=== PATIENT | male | born 1965 | race Caucasian/White ===

== ENCOUNTER 2025-07-30 12:09 | Outpatient (OUT) | payer MEDICARE, MEDICAID, SELFPAY ==
--- OUTSIDE RECORDS SUMMARY | 2025-07-29 06:45 | XMS_ITS ---
Author Organization [facility] vices Address [address] [place], [place] [id number] Care Team Providers Care Kier Drier Name Role Phone Augustin Keys [phone] Allergies No Known Allergies REASON FOR VISIT left arm numbness Medications Medication SIG (Take, Route, Frequency, Duration) Notes Start Date End Date Status Aspirin Adult Low Dose 81 MG 1 tablet Orally Once a day; Duration: 90 days Active Metoprolol Succinate 25 MG 1 capsule Orally Once a day; Duration: 90 days Active Rosuvastatin Calcium 10 MG 1 tablet Orally Once a day; Duration: 90 days Active metFORMIN HCl ER 500 MG 1 tablet with evening meal Orally Once a day; Duration: 90 days 07/06/2023 Not-Taking Nitroglycerin 0.4 MG as directed Sublingual 3 times a day 1 tablet as needed every 5min up to 3 times. max 3 tablets daily. 06/08/2023 Not-Taking Acetaminophen 500 MG 1 tablet as needed Orally every 6 hrs Not-Taking Losartan Potassium 100 MG 1 tablet Orally Once a day; Duration: 90 days Active Social History Tobacco Use: Social History Observation Description Date Details (start date - stop date) Current Smoker NA - NA Sex Assigned At : Social History Observation Description Sex Assigned At Male CAGE-AID Questionnaire (2018 Edition) Question Answer Notes Have you ever felt that you ought to cut down on your drinking or drug use? No Have people annoyed you by criticizing your drin lawanda or drug use? No Have you ever felt bad or guilty about your drin lawanda or drug use? No Have you ever had a drink or used drugs first thing in the morning to steady your nerves or to get rid of a hangover? No CAGE-AID Score 0 Interpretation Negative PRAPARE Question Answer Notes Date Completed/Updated: 07/29/2025 What is your current housing situation? I have h ousing Are you worried about losing your housing? No What is the highest level of school that you have finished? Less than a high school degree What is your current work situation? Oth erwise unemployed but not seeking work (ex. 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 Check all that apply I do not have problems meeting my needs Has lack of transportation k ept you from medical appointments, meetings, work or from getting things needed for daily living? No How often do you see or talk to people that you care about and feel close to? (For example: talking to friends on the phone, visiting friends or family, going to caodaism or club meetings) More than 5 times a week How stressed are you? Stress is when someone feels tense, nervous, anxious, or can't sleep at night because their mind is troubled Not at all In the past year have you sp ent more than 2 nights in a row in a shelter, shelter, residential center, or juvenile correctional facility? No Are you a refugee? No What country are you from? [place] Do you feel physically and e motionally safe where you currently live? Yes In the past year, have you b een afraid of your partner or ex-partner? Yes PRAPARE Score: 7 Tobacco Control (Standard) Question Answer Notes Tobacco use: Current smoker How often do you smoke cigarettes? Every day How many cigarettes a day do you smoke? 31 or mo re How soon after you wake up do you smoke your fir st cigarette? 6-30 minutes Vital Signs Temperature 98.6 degrees Fahrenheit 07/29/20 25 Weight 178.2 lbs 07/29/2025 Height 69.00 in 07/29/2025 BMI 26.31 kg/m2 07/29/2025 Blood pressure systolic 155 mm Hg 07/29/20 25 Blood pressure diastolic 76 mm Hg 025 Heart Rate 56 /min 07/29/2025 Respiratory Rate 16 /min 07/29/2025 Oximetry 96 % 07/29/2025 Weight-kg 80.83 kg 07/29/2025 Height-cm 175.26 cm 07/29/2025 denies pain. Karma Downs 07/29/2025 10:32:50 AM EDT > Encounters Encounter Location Date Provider Diagnosis Main [address] [place], [place] [id number] 07/29/2025 Augustin Ludmila Cigarette nicotine dependence without complication F17.210 ; Atherosclerosis of coronary artery of [place] heart, unspecified vessel or lesion type, unspecified whether angina present I25.10 ; Primary hypertension I10 ; Hyperlipidemia, unspecified hyperlipidemia type E78.5 ; Screening for cardiovascular condition Z13.6 ; Screening for diabetes mellitus Z13.1 ; Prediabetes R73.03 ; Screening for prostate cancer Z12.5 ; Dietary counseling Z71.3 and Exercise counseling Z71.82 Assessments Encounter Date Diagnosis (ICD Code) Assessment Notes Treatment Notes Treatment Clinical Notes Section Notes 07/29/2025 Cigarette nicotine dependence without complication (ICD-10 - F17.210) Patient provided with [phone] phone line. Low dose Ct ordered due to extensive history 07/29/2025 Atherosclerosis of coronary artery of [place] heart, unspecified vessel or lesion type, unspecified whether angina present (ICD-10 - I25.10) storngly encouraged pt to be seen in the ER with any worsening of the numbness and tingling, shorntess of breath or any new chest pain today i will order labs as listed as well as an EKG given the hisotry i strongly encouraged pt to call and schedule with cardio if he can not be seen by them then to call and i will send a new referral for a different cardio pt verbalized understanding i will follow in one week ask he complete his EKG SANDEEP as well as his other lab work explained that left arm pain can be signs of a heart attack, stroke and other serious conditions and this work up being urgent is very important 07/29/2025 Primary hypertension (ICD-10 - I10) BP is elevated in office today i wlll see him in one week for a recheck of this pt will go to the Er with any new or worsening symptoms of but not limited to chest pain, shortness of breath, blurry vision, or headaches if elevated will add additional agent to help control the BP labs as ordered recomend cardio follow up 07/29/2025 Hyperlipidemia, unspecified hyperlipidemia type (ICD-10 - E78.5) refill as listed lab ordered for recheck 07/29/2025 Screening for cardiovascular condition (ICD-10 - Z13.6) 07/29/2025 Screening for diabetes mellitus (ICD-10 - Z13.1) 07/29/2025 Prediabetes (ICD-10 - R73.03) last A1c was pre DM pt was on metformin currently on nothing will recheck his a1c at this time 07/29/2025 Screening for prostate cancer (ICD-10 - Z12.5) 07/29/2025 Dietary counseling (ICD-10 - Z71.3) 07/29/2025 Exercise counseling (ICD-10 - Z71.82) Plan Of Treatment Medication Medication Name Sig Start Date Stop Date Notes Aspirin Adult Low Dose 81 MG 1 tablet Or ally Once a day; Duration: 90 days Metoprolol Succinate 25 MG 1 capsule Ora lly Once a day; Duration: 90 days Rosuvastatin Calcium 10 MG 1 tablet Oral ly Once a day; Duration: 90 days Losartan Potassium 100 MG 1 tablet Orall y Once a day; Duration: 90 days Treatment Notes Assessment Notes Cigarette nicotine dependenc e without complication Patient provided with [phone] phone line. Low dose Ct ordered due to extensive history Atherosclerosis of coronary artery of [place] heart, unspecified vessel or lesion type, unspecified whether angina present storngly encouraged pt to be seen in the ER with any worsening of the numbness and tingling, shorntess of breath or any new chest pain today i will order labs as listed as well as an EKG given the hisotry i strongly encouraged pt to call and schedule with cardio if he can not be seen by them then to call and i will send a new referral for a different cardio pt verbalized understanding i will follow in one week ask he complete his EKG SANDEEP as well as his other lab work explained that left arm pain can be signs of a heart attack, stroke and other serious conditions and this work up being urgent is very important Primary hypertension BP is elevated in office today i wlll see him in one week for a recheck of this pt will go to the Er with any new or worsening symptoms of but not limited to chest pain, shortness of breath, blurry vision, or headaches if elevated will add additional agent to help control the BP labs as ordered recomend cardio follow up Hyperlipidemia, unspecified hyperlipidemia type refill as listed lab ordered for recheck Prediabetes last A1c was pre DM pt was on metformin currently on nothing will recheck his a1c at this time Pending Test Test Name Order Date Electrocardiogram (EKG) 07/29/2025 LIPID PANEL WITH REFLEX TO DIRECT LDL PSA, TOTAL, 3RD GENERATION 07/29/2025 HEMOGLOBIN A1C 07/29/2025 CT LOW DOSE LUNG SCREENING 07/29/2025 COMPREHENSIVE METABOLIC PANEL (AMA) 07/17 Next Appt Details Follow Up: 1 Week, Reason: h tn arm numbness Provider Name:Augustin Keys, 08/05/2025 10:30:00 AM, [address] [place] [address] [place], [place], [id number], Progress Notes * Emery JACKSONDOB:1965 (60 yo M)Acc No.[id number]:07/29/2025 Medical Note Patient: Jolene KAEEmery JONES Provider: Lori Keys :1965 A ge:60 Y S ex:Male Date:07/29/2025 Address:[address] [place] [address], [id number] Check In:10:18 AM EST Subjective: * Chief Complaints: * L eft arm numbness * HPI: I nterim History: Pt presents as a new patient for some arm numbness and medication refills he states that this arm numbness started a few weeks ago after a period of chest pain about four weeks ago has not had chest pain since he has a history of CAD and has previously followed with a slate mixer however reports he was told get out when he has last seen them over an unpaid bill pt does have medicare and medicaid today he is mostly concerned about getting a refill of his medications as he is nearly out of his Metoprolol, rosuvastatin, aspirin and losartan he denies any chest pain, dyspnea on exertion, headaches, vision changes, fatigue, abdominal pain, syncope or near syncope, palpations, only reporting a numbness in his left arm that has not caused any decrease in ROM, strength or pain reports that he has been able to do everything as he normally does since the numbness and tingling started and has no limitations what's so ever. D epression screening: PHQ-9 L ittle interest or pleasure in doing things?Not at all F eeling down, depressed, or hopeless N ot at all T rouble falling or staying asleep, or sleeping too much N ot at all F eeling tired or having little energy N ot at all P oor appetite or overeating N ot at all F eeling bad about yourself or that you are a failure, or have let yourself or your family down N ot at all T rouble concentrating on things, such as reading the newspaper or watching television N ot at all M oving or speaking so slowly that other people could have noticed; or the opposite, being so fidgety or restless that you have been moving around a lot more than usual N ot at all T houghts that you would be better off or of hurting yourself in some way N ot at all T otal Score 0 * ROS: N egative except mentioned above in the HPI. * Medical History: * Surgical History: H and Surgery Left, * Hospitalization/Major Diagno stic Procedure: D enies Past Hospitalization * Family History: F ather: . M other: alive. P aternal Grand Father: . P aternal Grand Mother: . M aternal Grand Father: . M aternal Grand Mother: . Brother: alive, diagnosed with Hypertension, Diabetes, High Cholesterol. S ister: alive, diagnosed with Cancer. 4 brother(s) , 3 sister(s) . . * Social History: P [facility] and [facility] Demographics: P [facility] Questions D o you have any barriers to learning? N one W hat is your preferred method of learning??Reading H ow often do you need to have someone help you read instructions? N ever T obacco Use: T obacco Control (Standard) T obacco use: C urrent smoker H ow often do you smoke cigarettes? E very day H ow many cigarettes a day do you smoke? 3 1 or more H ow soon after you wake up do you smoke your first cigarette? 6 -30 minutes S exual History: F amily Planning A re you or your partner planning on becoming in the next year if not already ? N o W hat type of contraception are you using??None D rugs/Alcohol/Caffeine: C AGE-AID Questionnaire (2018 Edition) H ave you ever felt that you ought to cut down on your drinking or drug use? N o H ave people annoyed you by criticizing your drinking or drug use? N o H ave you ever felt bad or guilty about your drinking or drug use? N o H ave you ever had a drink or used drugs first thing in the morning to steady your nerves or to get rid of a hangover? N o C AGE-AID Score 0 I nterpretation N egative S ocial Determinants: P RIMMA Fernández ate Completed/Updated: 1 W hat is your current housing situation? I have housing A re you worried about losing your housing??No W hat is the highest level of school that you have finished? L ess than a high school degree W hat is your current work situation? O therwise unemployed but not seeking work (ex. 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 Check all that apply I do not have problems meeting my needs H as lack of transportation kept you from medical appointments, meetings, work or from getting things needed for daily living? N o H ow often do you see or talk to people that you care about and feel close to? (For example: talking to friends on the phone, visiting friends or family, going to caodaism or club meetings) M ore than 5 times a week H ow stressed are you? Stress is when someone feels tense, nervous, anxious, or can't sleep at night because their mind is troubled N ot at all I n the past year have you spent more than 2 nights in a row in a shelter, shelter, residential center, or juvenile correctional facility? N o A re you a refugee? N o W hat country are you from[place] D o you feel physically and emotionally safe where you currently live? Y es I n the past year, have you been afraid of your partner or ex-partner? Y es P RIMMA Score: 7 * Medications: T akingAspirin Adult Low Dose 81 MG Tablet Delayed Release 1 tablet Orally Once a day Rosuvastatin Calcium 10 MG Tablet 1 tablet Orally Once a day Metoprolol Succinate 25 MG Capsule ER 24 Hour Sprinkle 1 capsule Orally Once a day Losartan Potassium 100 MG Tablet 1 tablet Orally Once a day Taking Aspirin Adult Low Dose 81 MG Tablet Delayed Release 1 tablet Orally Once a day Taking Rosuvastatin Calcium 10 MG Tablet 1 tablet Orally Once a day Taking Metoprolol Succinate 25 MG Capsule ER 24 Hour Sprinkle 1 capsule Orally Once a day Taking Losartan Potassium 100 MG Tablet 1 tablet Orally Once a day Not-Taking/PRNmetFORMIN HCl ER 500 MG Tablet Extended Release 24 Hour 1 tablet with evening meal Orally Once a day Nitroglycerin 0.4 MG Tablet Sublingual as directed Sublingual 3 times a day , Notes to Pharmacist: 1 tablet as needed every 5min up to 3 times. max 3 tablets daily.Acetaminophen 500 MG Tablet 1 tablet as needed Orally every 6 hrs Medication List reviewed and reconciled with the patientNot-Taking/PRN metFORMIN HCl ER 500 MG Tablet Extended Release 24 Hour 1 tablet with evening meal Orally Once a day Not-Taking/PRN Nitroglycerin 0.4 MG Tablet Sublingual as directed Sublingual 3 times a day , Notes to Pharmacist: 1 tablet as needed every 5min up to 3 times. max 3 tablets daily.Not-Taking/PRN Acetaminophen 500 MG Tablet 1 tablet as needed Orally every 6 hrs Medication List reviewed and reconciled with the patient * Allergies: N .K.D.A.no[Allergies Verified] Objective: * Vitals: T emp:98.6F, Wt:178.2lbs, Ht: 69.00 in, BMI:26.31Index, BP: 154/92 mm Hg,155/76mm Hg, HR:56/min, RR:16/min, Pain scale:01-10, Oxygen sat %:96%, Wt-k.83 kg, Ht- cm: 175.26 cm, Body Surface Area: 1.98. denies pain.Karma Downs 07/29/2025 10:32:50 AM EDT > . * Examination: C QM Exceptions: Currently taking Aspirin: A spirin Use: Y es G eneral Examination: General appearance: a lert, pleasant, well-nourished and in no acute distress. Head: n ormocephalic, atraumatic. Heart: r egular rate and rhythm without murmurs, gallops, clicks or rubs. Lungs: w ith scattered wheezes throughout. Abdomen: s oft with good bowel sounds, nontender, and no masses or hepatosplenomegaly. Extremities: n ormal extremity with no clubbing, cyanosis or edema. Neurologic: n onfocal, alert and oriented, gait normal, normal upper and lower extremity motor strength and function. Psych: a lert and oriented x 3. Assessment: * Assessment: 1. A therosclerosis of coronary artery of [place] heart, unspecified vessel or lesion type, unspecified whether angina present - I25.10 (Primary) 2 . C igarette nicotine dependence without complication - F17.210 3 . P rimary hypertension - I10 4. H yperlipidemia, unspecified hyperlipidemia type - E78.5 5 . S creening for cardiovascular condition - Z13.6 6 . S creening for diabetes mellitus - Z13.1 7 . P rediabetes - R73.03 8 . S creening for prostate cancer - Z12.5 9 . D ietary counseling - Z71.3 1 0. E xercise counseling - Z71.82 Plan: * Treatment: Notes: storngly encouraged pt to be seen in the ER with any worsening of the numbness and tingling,shorntess of breath or any new chest pain today i will order labs as listed as well as an EKG given the hisotry i strongly encouraged pt to call and schedule with cardio if he can not be seen by them then to call and i will send a new referral for a different cardio pt verbalized understanding i will follow in one week ask he complete his EKG SANDEEP as well as his other lab work explained that left arm pain can be signs of a heart attack, stroke and other serious conditions and this work up being urgent is very important ??2.?Cigarette nicotine dependence without complication?Imaging: CT LOW DOSE LUNG SCREENING* Notes: Patient provided with [phone] phone line. Low dose Ct ordered due to extensive history??3.?Primary hypertension? Refill Losartan Potassium Tablet, 100 MG, 1 tablet, Orally, Once a day, 90 days, 90, Refills 0; Refill Metoprolol Succinate Capsule ER 24 Hour Sprinkle, 25 MG, 1 capsule, Orally, Once a day, 90 days, 90, Refills 0.?LAB: COMPREHENSIVE METABOLIC PANEL (AMA) Notes: BP is elevated in office today i karenll see him in one week for a recheck of this pt will go to the Er with any new or worsening symptoms of but not limited to chest pain, shortnessof breath, blurry vision, or headaches if elevated will add additional agent to help control the BP labs as ordered recomend cardio follow up??4.?Hyperlipidemia, unspecified hyperlipidemia type? Refill Rosuvastatin Calcium Tablet, 10 MG, 1 tablet, Orally, Once a day, 90 days, 90, Refills 0. ?LAB: LIPID PANEL WITH REFLEX TO DIRECT LDL Notes: refill as listed lab ordered for recheck ??5.?Screening for diabetes mellitus?LAB: HEMOGLOBIN A1C6.?Prediabetes? Notes: last A1c was pre DM pt was on metformin currently on nothing will recheck his a1c at this time ??7.?Screening for prostate cancer?LAB: PSA, TOTAL, 3RD GENERATION * Procedure Codes: 3 077F HTN SYST BP >= 0589064D HTN DIAST BP < 770250I PT TOBACCO SCREEN RCVD TLK * Preventive Medicine: Counseling: C are goal follow-up plan: Nutrition/Dietary Counseling provided?Yes BMI management provided Y es S moking: Patient counselled on the dangers of tobacco use and urged to quit. 1 Patient Counselled: p atient not ready to quit * Follow Up: 1 Week (Reason: htn arm numbness) * Billing Information: * Visit Code: 83833 Office Visit Est 30-39 minutes. * Procedure Codes: 3077F HTN SYST BP >= 140. 3078F HTN DIAST BP < 80. 4004F PT TOBACCO SCREEN RCVD TLK. * Sign off status: Completed true * Provider: Lori Keys Date: Generated for Frank grant/Ciera/Monika on: 12:26 PM EDT History and Physical Notes * HPI (History of Present Illness) Category Sub-Category Detail Notes Category Not es Depression screening PHQ-9 Little inte rest or pleasure in doing things: Not at all Feeling down, depressed, or hopeless: No t at all Trouble falling or staying asleep, or sl eeping too much: Not at all Feeling tired or having little energy: N ot at all Poor appetite or overeating: Not at all Feeling bad about yourself o r that you are a failure, or have let yourself or your family down: Not at all Trouble concentrating on thi ngs, such as reading the newspaper or watching television: Not at all Moving or speaking so slowly that other people could have noticed; or the opposite, being so fidgety or restless that you have been moving around a lot more than usual: Not at all Thoughts that you would be b gladys off or of hurting yourself in some way: Not at all Total Score: 0 Interim History Pt presents as a new patient for some arm numbness and medication refills he states that this arm numbness started a few weeks ago after a period of chest pain about four weeks ago has not had chest pain since he has a history of CAD and has previously followed with a slate mixer however reports he was told get out when he has last seen them over an unpaid bill pt does have medicare and medicaid today he is mostly concerned about getting a refill of his medications as he is nearly out of his Metoprolol, rosuvastatin, aspirin and losartan he denies any chest pain, dyspnea on exertion, headaches, vision changes, fatigue, abdominal pain, syncope or near syncope, palpations, only reporting a numbness in his left arm that has not caused any decrease in ROM, strength or pain reports that he has been able to do everything as he normally does since the numbness and tingling started and has no limitations what's so ever Examination Category Sub-Category Detail Notes Category Not es General Examination General appearance: alert, p leasant, well-nourished and in no acute distress Head: normocephalic, atrau matic Heart: regular rate and rhy thm without murmurs, gallops, clicks or rubs Lungs: with scattered wheez es throughout Abdomen: soft with good bowel sounds, nontender, and no masses or hepatosplenomegaly Neurologic: nonfocal, alert and oriented, gait normal, normal upper and lower extremity motor strength and function Extremities: normal extremity wit h no clubbing, cyanosis or edema Psych: alert and oriented x 3 CQM Exceptions Currently taking Aspirin: Aspirin Use:: Yes
--- OUTSIDE RECORDS SUMMARY | 2025-07-30 12:27 | XMS_ITS | Encounter Summary ---
Author Organization [facility] Address [facility] [id number] [address] [place] [address] Care Team Providers Care Sales And Marketing Analyst Name Role Phone Dora Art COMMUNITY AMBASSADOR-RN WOMEN SERVICES Primary Care Provider + Encounter Details Date Type Department Care Team (Late st Contact Info) Description 04/09/2021 Orders Only [facility] [address] [place] [id number] External, Scanning Provider Social History Tobacco Use Types Packs/Day Years Used Date Smoking Tobacco: Every Day Cigarettes Smokeless Tobacco: Never Alcohol Use Standard Drinks/Week Comments Yes 0 (1 standard drink = 0.6 oz pur e alcohol) Childcare Answer Date Recorded Childcare Unknown 03/28/2019 Employment Answer Date Recorded Employment Unknown 03/28/2019 Purpose - Life Answer Date Recorded Purpose and direction in life Unknown Sex and Gender Information Value Date Recorded Sex Assigned at Not on file Legal Sex Male 11:35 AM EDT Gender Identity Not on file Sexual Orientation Not on file COVID-19 Exposure Response Date Recorded In the last month, have you been in contact with someone who was confirmed or suspected to have Coronavirus / COVID-19? No / Unsure 04/09/2021 7:46 AM EDT documented as of this encounter Plan of Treatment Not on file documented as of this encounter Procedures Procedure Name Priority Date/Time Associated Diagnosis Comments MULTIPLE LABS Routine 07/24/2020 LIPID PROFILE Routine 07/24/2020 documented in this encounter Results * Lipid profile (07/24/2020) External Cholesterol 207 MANUALLY TRANSCRIBED RESULTS External Cholesterol:Hdl 3.3 MANUALLY TRANSCRIBED RESULTS External Hdl Cholesterol 62 MANUALLY TRANSCRIBED RESULTS External Ldl (Calc) 120 MANUALLY TRANSCRIBED RESULTS External Triglycerides 124 MANUALLY TRANSCRIBED RESULTS External Very Low Lipoprotein 25 MANUALLY TRANSCRIBED RESULTS us Scanning Provider External LAB BLOOD ORDERABLES Edited Result - Final MANUALLY TRANSCRIBED RESULTS * Multiple labs (07/24/2020) us Scanning Provider External [facility] Final Result Performing Organization Address City/[facility] [address]/[facility] Co de Phone Number MANUALLY TRANSCRIBED RESULTS documented in this encounter Visit Diagnoses Not on filedocumented in this encounter Care Teams Sales And Marketing Analyst Relationship Specialty Start Date End Date Dora Art, COMMUNITY AMBASSADOR-RN WOMEN SERVICES [address] [place] [address] PCP - General Family Medicine 03/24/21 documented as of this encounter
--- OUTSIDE RECORDS SUMMARY | 2025-07-30 12:27 | XMS_ITS | Patient Health Record ---
Author Organization [facility] vices Address [address] [place], [place] [id number] Care Team Providers Care Word Processing Supervisor Name Role Phone Augustin Keys Unavailable [phone] Allergies No Known Allergies Reason For Referral No Information Medications Medication SIG (Take, Route, Frequency, Duration) Notes Start Date End Date Status Metoprolol Succinate ER 25 MG 1 tablet Orally Once a day; Duration: 90 days Active Aspirin Adult Low Dose 81 MG 1 tablet Orally Once a day; Duration: 90 days Active Rosuvastatin Calcium 10 MG 1 tablet Orally Once a day; Duration: 90 days Active Acetaminophen 500 MG 1 tablet as needed [...] times. max 3 tablets daily. 06/08/2023 Not-Taking Social History Tobacco Use: Social History Observation Description Date Details (start date - stop date) Current Smoker NA - NA Sex Assigned At : Social History Observation Description Sex Assigned At Male Tobacco Use/Smoking Question Answer Notes Are you interested in quitting? Thinking about q uitting patient entered data How soon after you wake up d o you smoke your first cigarette? within 5 minutes patient entered data How often do you smoke cigarettes? every day patient entered data When did you start smoking? 10/17/1979 p atient entered data Tobacco use: current smoker patient enter ed data How many cigarettes a day do you smoke? 11-20 patient entered data CAGE-AID Questionnaire (2018 Edition) Question Answer Notes Have you ever felt that you ought to cut down on your drinking or drug use? No patient entered data Have people annoyed you by c riticizing your drinking or drug use? No patient entered data Have you ever felt bad or gu ilty about your drinking or drug use? No patient entered data Have you ever had a drink or used drugs first thing in the morning to steady your nerves or to get rid of a hangover? No patient entered data CAGE-AID Score 0 Interpretation Negative PRAPARE Question Answer Notes Date Completed/Updated: 07/29/2025 elidia nt entered data What is your current housing situation? I have housing patient entered data Are you worried about losing your housing? No patient entered data What is the highest level of school that you have finished? Less than a high school degree patient entered data What is your current work situation? Otherwise unemployed but not seeking work (ex. 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 Stress is when someone feels tense, nervous, anxious, or can't sleep at night because their mind is troubled Not at all patient entered data In the past year have you sp ent more than 2 nights in a row in a nursing home, intermediate, usp center, or juvenile correctional facility? No patient entered data Are you a refugee? No patient en tered data What country are you from? [place] ruma bowers entered data Do you feel physically and emotionally safe where you currently live? Yes patient entered data In the past year, have you b een afraid of your partner or ex-partner? Yes patient entered data PRAPARE Score: 7 Tobacco Control (Standard) Question Answer Notes Tobacco use: Current smoker How often do you smoke cigarettes? Every day How many cigarettes a day do you smoke? 31 or mo re How soon after you wake up do you smoke your fir st cigarette? 6-30 minutes Problems Problem Type SNOMED Code ICD Code Onset Dates Problem Status W/U Status Risk Notes Problem Prediabetes (373952981) Prediabetes (R73.03) Active confirmed Problem Tobacco user (562848656) Cigarette nicotine dependence without complication (F17.210) Active confirmed Problem Vertigo (625788002) Vertigo (R42) Problem resolved confirmed Comment:Refe rred to Dr. Marcano for removal of cerumen and evaluation of hearing loss; appt. next October 30. Can use Debrox 5 drops BID for the next 4 days; otherwise, discontinue use of Q Tips and keep ears clean and dry as able, Problem Hyperlipidaemia (25284393) Hyperlipidemia, unspecified hyperlipidemia type (E78.5) Active confirmed Problem Erectile dysfunction (639389607) Erectile dysfunction (N52.9) Inactive confirmed Comment:advi sed need to have labwork completed. could consider medication if all WNL., Problem Primary hypertension (53198731) Primary hypertension (I10) Active confirmed Problem Atherosclerotic heart disease of [place] coronary artery without angina pectoris (096652685196014) Atherosclerosis of coronary artery of [place] heart, unspecified vessel or lesion type, unspecified whether angina present (I25.10) Active confirmed Vital Signs Heart Rate 56 /min 07/29/2025 denies pain. Me Karma vaughan 07/29/2025 10:32:50 AM EDT > Temperature 98.6 degrees Fahrenheit 07/29/2025 dae es pain. Karma Downs 07/29/2025 10:32:50 AM EDT > Respiratory Rate 16 /min 07/29/2025 denies pain . Karma Downs 07/29/2025 10:32:50 AM EDT > Blood pressure diastolic 76 mm Hg 07/29/2025 den ies pain. Karma Downs 07/29/2025 10:32:50 AM EDT > Oximetry 96 % 07/29/2025 denies pain. Me Karma vaughan 07/29/2025 10:32:50 AM EDT > Height-cm 175.26 cm 07/29/2025 denies pain. Karma vaughan 07/29/2025 10:32:50 AM EDT > Weight-kg 80.83 kg 07/29/2025 denies pain. Karma vaughan 07/29/2025 10:32:50 AM EDT > Height 69.00 in 07/29/2025 denies pain. Karma vaughan 07/29/2025 10:32:50 AM EDT > Blood pressure systolic 155 mm Hg 07/29/2025 dae es pain. Karma Downs 07/29/2025 10:32:50 AM EDT > Weight 178.2 lbs 07/29/2025 denies pain. Karma vaughan 07/29/2025 10:32:50 AM EDT > BMI 26.31 kg/m2 07/29/2025 denies pain. Karma vaughan 07/29/2025 10:32:50 AM EDT > Encounters Encounter Location Date Provider Diagnosis Main [address] [place], [place] [id number] 07/29/2025 Augustin Keys Cigarette nicotine dependence without complication F17.210 ; Atherosclerosis of coronary artery of [place] heart, unspecified vessel or lesion type, unspecified [...] complication (ICD-10 - F17.210) Patient provided with [phone] phone line. Low dose Ct ordered due to extensive history 07/29/2025 Atherosclerosis of coronary artery of [place] heart, unspecified vessel or lesion type, unspecified [...] counseling (ICD-10 - Z71.82) Plan Of Treatment Pending Test Test Name Order Date Electrocardiogram (EKG) 07/29/2025 LIPID PANEL WITH REFLEX TO DIRECT LDL PSA, TOTAL, 3RD GENERATION 07/29/2025 HEMOGLOBIN A1C 07/29/2025 CT LOW DOSE LUNG SCREENING 07/29/2025 COMPREHENSIVE METABOLIC PANEL (AMA) 07/17 Next Appt Details Provider Name:Augustin Shipmanyue, 08/05/2025 10:30:00 AM, [address] [place], [place], [id number], Insurance Providers Payer Name Payer Address Payer Phone Subscriber Number Group Number Insured Name Patient Relationship to Insured Coverage Start Date Coverage End Date [facility] Dual Medical [facility] [address] [place] [address] [id number] Emery Child Self - patient is the insured 1 D20 Resp Sliding Fee Scale [address] [place] [address] Emery Child Self - patient is the insured 5 6 Medicaid [employer] [address] [place], [place] [id number] Emery Child Self - patient is the insured 0 Medicare NGS PPS [address] [place], [place] [id number] Emery Child Self - patient is the insured 5 1 Medical (General) History Medical History History ICD Code Hearing Loss Hypertension Vertigo Surgical History Surgery Date(Month/Year) Hand Surgery Left,
--- OUTSIDE RECORDS SUMMARY | 2025-07-30 12:27 | XMS_ITS | Clinical Summary ---
Author Organization [employer] [facility] Address [facility] [id number] [address] [place] [address] Care Team Providers Care Baker Helper Name Role Phone Dora Art SEAM RUBBING MACHINE OPERATOR-WET ROOM WORKER Primary Care Provider + Allergies No known active allergies Medications losartan (COZAAR) 100 mg tablet Take 100 mg by mouth daily. 0 Active meclizine (ANTIVERT) 25 mg tablet Take 25 mg by mouth 4 (four) times a day as needed. 0 Active ofloxacin (FLOXIN) 0.3 % otic solutionIndicat ions:Hearing loss of left ear due to cerumen impaction Instil 5 gtt in the affected ear(s) BID x 10 days 5 mL 0 Active Additional Information Patient not taking.Reported on 04/09/2021 Active Problems Problem Noted Date Diagnosed Date Hearing loss of left ear due to cerumen impactio n 10/30/2019 Family History Medical History Relation Name Comments Heart disease Father Relation Name Status Comments Father Social History Tobacco Use Types Packs/Day Years [...] on file Sexual Orientation Not on file Last Filed Vital Signs Vital Sign Reading Time Taken Comments Blood Pressure 112/68 03/24/2021 9:45 AM EDT Pulse 75 03/24/2021 9:45 AM EDT Temperature - - Respiratory Rate - - Oxygen Saturation - - Inhaled Oxygen Concentration - - Weight 80.7 kg (178 lb) 04/09/2021 8:03 AM EDT Height 182.9 cm (6') 04/09/2021 8:03 AM EDT Body Mass Index 24.14 04/09/2021 8:03 AM EDT Plan of Treatment Health Maintenance Due Date Last Done Comments Depression Screening 1976 Tobacco Screening 1976 Adult BMI Screening 01/18/1982 DTaP,Tdap and Td Vaccines (1 - Tdap) 01/18/1983 Zoster (Shingles) Vaccine (1 of 2) 01/18/2014 COVID-19 Vaccine (3 - 2024- season) 2025, 05/15/2021 Influenza Vaccine 06/17/2025 Medical Devices Not on file Insurance MEDICAID [place] [employer] MEDICARE Care Teams Baker Helper Relationship Specialty Start Date End Date Dora Art, [facility] [address] [place] [address] PCP - General Family Medicine 03/24/21
--- NOTE | 2025-07-30 12:35 | ECG_ITS ---
The [facility] Test Date: 2025-07-30 Pat Name: BOLIVAR JACKSON Department: Room: - Gender: Male Business Development Officer: : 1965 Requested By: [id number] Order Number: [id number] Reading MD: JAIR SALINAS M.D. Measurements Intervals Kn[place]bocker Rate: 58 P: 53 WI: 178 QRS: 94 QRSD: 105 T: 71 QT: 394 QTc: 389 Interpretive Statements SINUS BRADYCARDIA BORDERLINE RIGHT AXIS DEVIATION [QRS AXIS > 90] Borderline ECG No previous ECG available for comparison Electronically Signed On 07-30-2025 19:08:53 EDT by JAIR SALINAS M.D.
[2025-07-30 13:34] LABS: Alanine Aminotransferase 22 U/L (16-63); Albumin Globulin Ratio 1.1; Albumin Level 4.4 g/dL (3.4-5.0); Alkaline Phosphatase 61 U/L (46-116); Anion Gap 15.5; Aspartate Amino Transferase 28 U/L (15-37); Blood Urea Nitrogen 17.0 mg/dL (7.0-18.0); Calcium 9.5 mg/dL (8.5-10.1); Carbon Dioxide 29.1 mmol/L (21.0-32.0); Chloride 102 mmol/L (98-107); Cholesterol 180 mg/dL (<=200); Estimated GFR (African America >60 (>=60 mL/min/1.73m^2); Estimated GFR (Non-African Ame >60 (>=60 mL/min/1.73m^2); Globulin 4.1 g/dL; Glucose 107 mg/dL (74-106); HDL Cholesterol 82 mg/dL (40-60); Potassium 4.6 mmol/L (3.5-5.1); Sodium 142 mmol/L (136-145); Total Protein 8.5 g/dL (6.4-8.2); Triglycerides 139 mg/dL (<=150); VLDL CHOLESTEROL 27.8 mg/dL
== END 2025-07-30 12:10 | disposition home or self-care (01) ==
DX: E78.5 Hyperlipidemia, unspecified (principal); Z13.1 Encounter for screening for diabetes mellitus; I10 Essential (primary) hypertension; Z12.5 Encounter for screening for malignant neoplasm of prostate; I25.10 Atherosclerotic heart disease of native coronary artery without angina pectoris; F17.210 Nicotine dependence, cigarettes, uncomplicated
CPT/HCPCS: 36415; 80053; 80061; 83036; 93005; G0103

== ENCOUNTER 2025-08-02 12:12 | Outpatient (OUT) | payer MEDICARE, MEDICAID, SELFPAY ==
--- NOTE | 2025-08-02 12:16 | CT_ITS ---
The [address] [address] Patient Name: BOLIVAR JACKSON MRN: [id number] date: 1965 Sex: M Assigned Patient Location: CT Current Patient Location: CT Accession/Order Number: [id number] Exam Date: 08/02/2025 12:22 Report Date: 08/02/2025 12:53 At the request of: AXEL BAUTISTA Procedure: CT lung screening low-dose CT CHEST WITHOUT CONTRAST, LOW DOSE SCREENING: CLINICAL DATA: A 60-year old current smoker, smoking for 30 pack-years. COMPARISON: None TECHNIQUE: Noncontrast axial CT scan images of the chest were obtained under the low dose screening CT protocol. Coronal and sagittal reconstructed images were also submitted. FINDINGS: Mediastinum : Suboptimal evaluation due to low-dose technique. Thoracic aorta appears normal in caliber. Pulmonary trunk appears nondilated. No pericardial effusion. No lymphadenopathy. The esophagus is grossly unremarkable. Lungs: No focal consolidation, pneumothorax or pleural effusion. Trachea and distal airways appear patent. Diffuse bronchial wall thickening. Advanced emphysematous changes with bulla involving the right lung apex. Mild lung scarring. No suspicious noncalcified pulmonary nodule or mass. Upper abdomen: No acute findings. Bony thorax and chest wall: Soft tissues surrounding the chest wall demonstrate no acute findings. Osseous structures demonstrate degenerative change. CT/CT lung screening low-dose IMPRESSION: NO SUSPICIOUS PULMONARY NODULE. LUNG - RADS Version 1.0 Assessment: Category 1, Negative (No nodules and definitely benign nodules). Management: Continue annual lung screening with LDCT in 12 months. Impression dictated by: Joseluis Pathak Jr., D.O. 08/02/2025 12:53 PM Dictation Location: [place] [address] Electronically authenticated by: [id number] Date: 08/02/2025 12:53
== END 2025-08-02 12:13 | disposition home or self-care (01) ==
LOC: CT 12:12
DX: I25.10 Atherosclerotic heart disease of native coronary artery without angina pectoris (principal); F17.210 Nicotine dependence, cigarettes, uncomplicated
CPT/HCPCS: 71271